=== PATIENT | female | born 1995 | race Caucasian/White ===

== ENCOUNTER 2021-03-25 19:39 | Emergency (ER) | payer MEDICAID ==
[~2021-03-25] VITALS: Ht 157.5 cm; Wt 45.4 kg
--- NOTE | 2021-03-25 19:56 | NUR ---
BIBS C/O "FEELING WEAK DUE TO LOW IRON" & ALSO FEELING "CHILLS FOLLOWED BY HOT FLASHES" PATIENT AFEBRILE AND UNVACCINATED TO COVID. PATIENT ALERT AND ORIENTED X3. AMBULATORY WITH NON LABORED BREATHING.
--- NOTE | 2021-03-25 20:02 | NUR ---
PA AT BEDSIDE
--- NOTE | 2021-03-25 20:10 | NUR ---
URINE COLLECTED AND SENT TO LAB
--- NOTE | 2021-03-25 20:14 | NUR ---
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
[2021-03-25 20:43] LABS: BASOPHILS % (AUTO) 0.5 % (0.0-2.0); EOSINOPHILS % (AUTO) 1.4 % (0.0-6.0); HEMATOCRIT 39 % (33-45); HEMOGLOBIN 12.9 g/dL (11.5-14.8); LYMPHOCYTES # (AUTO) 1.8 K/uL (0.8-4.8); LYMPHOCYTES % (AUTO) 29.2 % (20.0-44.0); MEAN CORPUSCULAR HGB CONC 33 g/dl (31.0-36.0); MEAN CORPUSCULAR VOLUME 90 fL (82-100); MONOCYTES # (AUTO) 0.5 K/uL (0.1-1.30); MONOCYTES % (AUTO) 7.3 % (2.0-12.0); NEUTROPHILS # (AUTO) 3.8 K/uL (1.8-8.9); NEUTROPHILS % (AUTO) 61.6 % (43.0-81.0); PLATELET COUNT (AUTO) 174 K/uL (150-450); RED BLOOD CELL COUNT(AUTO) 4.34 MIL/uL (4.0-5.2); WHITE BLOOD COUNT (AUTO) 6.2 K/uL (4.3-11.0)
[2021-03-25 20:54] LABS: CALCIUM, SERUM 8.6 mg/dL (8.5-10.1); CREATININE 0.8 mg/dL (0.6-1.3); POTASSIUM 3.4 mmol/L (3.5-5.1)
[2021-03-25 21:05] LABS: ALBUMIN 4.4 g/dL (3.4-5.0); BILIRUBIN,TOTAL 0.5 mg/dL (0.2-1.0); TOTAL PROTEIN, SERUM 8.1 g/dL (6.4-8.2)
[2021-03-25 21:49] LABS: BILIRUBIN,URINE NEGATIVE (NEGATIVE); COLOR,URINE YELLOW (YELLOW); LEUKOCYTE ESTERASE ,URINE NEGATIVE (NEGATIVE); NITRITE, URINE NEGATIVE (NEGATIVE); PROTEIN,URINE NEGATIVE (NEGATIVE); UGLUCOSE NEGATIVE (NEGATIVE); UROBILINOGEN,URINE 0.2 EU/dL (0.2)
[2021-03-25 21:54] VITALS: BP 112/70
[2021-03-25 21:54] LABS: BACTERIA,URINE RARE /HPF (None Seen); MUCUS,URINE Many /LPF (None Seen); WBC,URINE 0-2 /HPF (0-3)
--- NOTE | 2021-03-25 21:54 | NUR ---
Patient discharged to home in stable condition. Written and verbal after care instructions given. Patient verbalizes understanding of instruction.
== END 2021-03-25 21:56 | disposition home or self-care (01) ==
LOC: ER 19:42
DX: R53.1 Weakness (principal); Z60.2 Problems related to living alone
CPT/HCPCS: 36415; 80053-TC; 81001; 84702-TC; 85025-TC

== ENCOUNTER 2024-01-26 21:23 | Emergency (ER) | payer MEDICAID, OTHER ==
[~2024-01-26] VITALS: Ht 160 cm; Wt 49.9 kg
[2024-01-26] MEDS ORDERED: ACETAMINOPHEN 325 MG TABLET ONE (22:04)
[2024-01-26] MEDS: ACETAMINOPHEN 325 MG TABLET PO ONE (22:05)
[2024-01-26 23:44] VITALS: BP 110/63; TEMP 98; O2SAT 98
== END 2024-01-26 23:45 | disposition home or self-care (01) ==
LOC: ER 21:28
DX: S00.83XA Contusion of other part of head, initial encounter (principal); R51.9 Headache, unspecified; M25.562 Pain in left knee; M25.531 Pain in right wrist; Z60.2 Problems related to living alone; W01.0XXA Fall on same level from slipping, tripping and stumbling without subsequent striking against object, initial encounter; Y93.89 Activity, other specified; Y92.89 Other specified places as the place of occurrence of the external cause; Y99.8 Other external cause status
CPT/HCPCS: 70450-TC; 73110; 73562